=== PATIENT | male | born 2000 | race Two or more races ===

== ENCOUNTER 2019-06-16 16:42 | Emergency (ER) | payer SELFPAY ==
[~2019-06-16] VITALS: Ht 182.9 cm; Wt 101.6 kg
[~2019-06-16 16:42] MED LIST: COLACE100 MG ORAL; IBUPROFEN600 MG ORAL
[2019-06-16 17:09] VITALS: BP 113/71
--- NOTE | 2019-06-16 17:09 | NUR ---
ED Nurse Note: Pt. c/o left elbow pain radiating to his left shoulder, chest, and back of the neck for a month. The pain with movement and felt anxiety.
--- NOTE | 2019-06-16 17:24 | Diagnostic Imaging Report ---
EXAM: XR Chest, 1 View CLINICAL HISTORY: PAIN TECHNIQUE: Frontal view of the chest. COMPARISON: No relevant prior studies available. FINDINGS: Lungs: No acute cardiopulmonary disease definitively seen. Pleural space: Unremarkable. No pneumothorax. Heart: Mildly prominent right heart border could be incidental, although chamber enlargement could also produce this appearance. Consider nonemergent echocardiogram if felt to alter further management. Mediastinum: Unremarkable. Bones/joints: Unremarkable. Other findings: Otherwise unremarkable. IMPRESSION: 1. No acute cardiopulmonary disease definitively seen. 2. Mildly prominent right heart border could be incidental, although chamber enlargement could also produce this appearance. Consider nonemergent echocardiogram if felt to alter further management. 3. Otherwise unremarkable.
[2019-06-16] MEDS ORDERED: Ketorolac 30mg Inj IV ONE (17:30)
--- NOTE | 2019-06-16 17:41 | NUR ---
ED Nurse Note: EKG is done. All labs sent.
[2019-06-16 17:44] LABS: APPEARANCE,URINE CLEAR; BILIRUBIN, URINE NEGATIVE (NEGATIVE); COLOR,URINE PALE YELLOW; GLUCOSE, URINE (UA) NEGATIVE (NEGATIVE); KETONES,URINE NEGATIVE (NEGATIVE); LEUKOCYTE ESTERASE ,URINE NEGATIVE (NEGATIVE); NITRITE,URINE NEGATIVE (NEGATIVE); PH,URINE 6.5 (4.5-8.0); PROTEIN,URINE NEGATIVE (NEGATIVE); UROBILINOGEN,URINE NORMAL MG/DL (0.0-1.0)
[2019-06-16 17:52] LABS: ANION GAP 9 mmol/L (5-15); BLOOD UREA NITROGEN 10 mg/dL (7-18); CALCIUM 8.9 MG/DL (8.5-10.1); CARBON DIOXIDE 27 MMOL/L (21-32); CHLORIDE 106 MMOL/L (98-107); POTASSIUM 4.1 MMOL/L (3.5-5.1); SODIUM 142 MMOL/L (136-145)
[2019-06-16 17:57] LABS: ALANINE AMINOTRANSFERASE 55 U/L (12-78); ALBUMIN 4.1 G/DL (3.4-5.0); ALKALINE PHOSPHATASE 116 U/L (46-116); ASPARTATE AMINO TRANSFERASE 19 U/L (15-37); BILIRUBIN,TOTAL 0.3 MG/DL (0.2-1.0); CREATINE KINASE 144 U/L (26-308)
[2019-06-16 18:05] LABS: BASOPHILS % (AUTO) 1.3 % (0.0-2.0); EOSINOPHILS % (AUTO) 2.7 % (0.0-3.0); HEMATOCRIT 50.1 % (42.0-52.0); HEMOGLOBIN 16.5 G/DL (14.2-18.0); LYMPHOCYTES % (AUTO) 18.5 % (20.0-45.0); MEAN CORPUSCULAR VOLUME 89 FL (80-99); MONOCYTES % (AUTO) 7.7 % (1.0-10.0); NEUTROPHILS % (AUTO) 69.8 % (45.0-75.0); PLATELET COUNT 282 K/UL (150-450); RED BLOOD COUNT 5.59 M/UL (4.70-6.10); RED CELL DISTRIBUTION WIDTH 11.5 % (11.6-14.8); WHITE BLOOD COUNT 8.1 K/UL (4.8-10.8)
--- NOTE | 2019-06-16 18:11 | Emergency Room Report ---
History of Present Illness General Chief Complaint: Upper Extremity Injury Source: Patient Present Illness HPI 19-year-old male with no significant medical history here complaining of 1 month of intermittent chest pain and shortness of breath. Patient reports that he used to lift weights every day and do push-ups at the gym, drink energy drinks and take pre-workout however since the start of COVID-19 quarantine patient has not exhausted withdrawal has not taken any energy drinks or with usual routine pre-workout. Denies any fall or injury. Reports that the pain is worse with movement. Also complains of acid reflux, denies generalized abdominal pain, nausea vomiting, diarrhea. Denies cough and congestion, chest pressure, pleuritic chest pain, fever and chills. Denies any history of tobacco smoke, drug use, alcohol intake. Also reports that he gets occasional tingling sensation and pain in left elbow with radiation to left arm. Reports that he has history of anxiety. Denies any SI and HI at this time. Denies any cardiac history. Allergies: Coded Allergies: No Known Allergies (Unverified , 07/10/12) COVID-19 Screening Contact w/high risk pt: No Recent Travel to affected area: No Experienced COVID-19 symptoms?: No Patient History Past Medical History: see triage record Past Surgical History: none Pertinent Family History: none Immunizations: UTD Reviewed Nursing Documentation: PMH: Agreed; PSxH: Agreed Nursing Documentation-PMH Past Medical History: No Stated History Review of Systems All Other Systems: negative except mentioned in HPI Physical Exam Vital Signs Date Time Temp Pulse Resp B/P (MAP) Pulse Ox O2 Delivery O2 Flow Rate FiO2 06/16/19 16:48 98.1 100 18 113/71 (85) 99 Room Air Sp02 EP Interpretation: reviewed, normal General Appearance: no apparent distress, alert, GCS 15, non-toxic Head: normocephalic, atraumatic Eyes: bilateral eye normal inspection, bilateral eye PERRL ENT: hearing grossly normal, normal pharynx, no angioedema, normal voice Neck: full range of motion, supple/symm/no masses Respiratory: chest non-tender, lungs clear, normal breath sounds, speaking full sentences Cardiovascular #1: regular rate, rhythm, no edema Gastrointestinal: normal bowel sounds, non tender, soft, non-distended, no guarding, no rebound Genitourinary: no CVA tenderness Musculoskeletal: back normal, no calf tenderness Neurologic: alert, motor strength/tone normal, oriented x3, sensory intact, responsive, speech normal Psychiatric: judgement/insight normal, memory normal, anxious Skin: no rash Lymphatic: no adenopathy Medical Decision Making PA Attestation All diagnoses and treatment plans were reviewed and discussed with my supervising physician Dr. Tapia Diagnostic Impression: Primary Impression: Chest wall pain Additional Impressions: Anxiety Gastritis ER Course 19-year-old male with no significant medical history here complaining of 1 month of intermittent chest pain and shortness of breath. Patient reports that he used to lift weights every day and do push-ups at the gym, drink energy drinks and take pre-workout however since the start of - quarantine patient has not exhausted withdrawal has not taken any energy drinks or with usual routine pre-workout. Denies any fall or injury. Reports that the pain is worse with movement. Also complains of acid reflux, denies generalized abdominal pain, nausea vomiting, diarrhea. Denies cough and congestion, chest pressure, pleuritic chest pain, fever and chills. Denies any history of tobacco smoke, drug use, alcohol intake. Also reports that he gets occasional tingling sensation and pain in left elbow with radiation to left arm. Reports that he has history of anxiety. Denies any SI and HI at this time. Denies any cardiac history. Ddx considered but are not limited to: OK, Angina, COPD, GERD, Vital signs: are WNL, pt. is afebrile H&PE are most consistent with chest wall pain, anxiety, gastritis ORDERS: EKG, Chest XR, cardiac labs(troponin, CBC, CMP), omeprazole, Robaxin, Tylenol ED INTERVENTIONS: NS bolus, Pepcid, Toradol as patient reported that he felt much better after administration of these medications DISCHARGE: At this time pt. is stable for d/c to home. Will provide printed patient care instructions, and any necessary prescriptions. Care plan and follow up instructions have been discussed with the patient prior to discharge. Patient to follow primary doctor, referral to special weapons unit officer may be needed, avoid strenuous physical activity, however resume his routine workout. EKG Diagnostic Results Rate: normal Rhythm: NSR ST Segments: no acute changes Other Impression No acute ST changes Chest X-Ray Diagnostic Results Chest X-Ray Diagnostic Results : Chest X-Ray Ordered: Yes # of Views/Limited/Complete: 1 View Indication: Chest Pain EP Interpretation: Yes PA Xray: Interpretation reviewed, by supervising MD, and agrees with findings. Interpretation: no consolidation, no effusion, no pneumothorax Impression: No acute disease Electronically Signed by: Elier SANDOVAL Scribe Text IMPRESSION: 1. No acute cardiopulmonary disease definitively seen. 2. Mildly prominent right heart border could be incidental, although chamber enlargement could also produce this appearance. Consider nonemergent echocardiogram if felt to alter further management. 3. Otherwise unremarkable. Other X-Ray Diagnostic Results Other X-Ray Diagnostic Results : X-Ray ordered: Left elbow # of Views/Limited Vs Complete: 3 View Indication: Pain EP Interpretation: Yes PA Xray: Interpretation reviewed, by supervising MD, and agrees with findings. Interpretation: no dislocation, no soft tissue swelling, no fractures Impression: No acute disease Electronically Signed by: Eiler Feliz PA-C Last Vital Signs Date Time Temp Pulse Resp B/P (MAP) Pulse Ox O2 Delivery O2 Flow Rate FiO2 06/16/19 16:48 98.1 100 18 113/71 (85) 99 Room Air Disposition: HOME, SELF-CARE Condition: Stable Scripts Omeprazole (OMEPRAZOLE) 20 Mg Tablet.dr 20 MG ORAL DAILY, #30 TAB Prov: Elier Mares 06/16/19 Methocarbamol* (ROBAXIN-500*) 500 Mg Tablet 500 MG ORAL TID PRN for For Pain, #15 TAB 0 Refills Prov: Elier Mares 06/16/19 Acetaminophen* (TYLENOL EXTRA STRENGTH*) 500 Mg Tablet 500 MG ORAL Q8H PRN for Prn Headache/Temp > 101, #30 TAB 0 Refills Prov: Elier Mares 06/16/19 Referrals: NOT APPLICABLE THIS PATIENT,RE (PCP) Patient Instructions: Chest Wall Pain, [id number] Additional Instructions: Take medication as directed, follow with primary doctor, referral to special weapons unit officer may be needed, if worsening symptoms return to the emergency room Elier Mares June 16, 2019 18:11
[2019-06-16] MEDS ORDERED: OMEPRAZOLE20 M3 ORAL (18:12)
[2019-06-16] MEDS ORDERED: ROBAXIN-500MG ORAL (18:12)
[2019-06-16] MEDS ORDERED: TYLENOL EXTRA500 MG ORAL (18:12)
--- NOTE | 2019-06-16 18:35 | NUR ---
ER DISCHARGE NOTE: Patient is cleared to be discharged per ERMD, pt is aox4, on room air, with stable vital signs. pt was given dc and prescription instructions, pt was able to verbalize understanding, pt id band and iv site removed without complications. pt is able to ambulate with steady gait. pt took all belongings.
--- NOTE | 2019-06-16 18:42 | Diagnostic Imaging Report ---
EXAM: XR Left Elbow Complete, 3 or More Views CLINICAL HISTORY: PAIN TECHNIQUE: Frontal, lateral and oblique views of the left elbow. COMPARISON: No relevant prior studies available. FINDINGS: Bones/joints: Unremarkable. No acute fracture. No dislocation. Soft tissues: Unremarkable. IMPRESSION: Normal left elbow x-rays.
== END 2019-06-16 18:35 | disposition home or self-care (01) ==
LOC: EMR 17:46
DX: R07.9 Chest pain, unspecified (principal); F41.9 Anxiety disorder, unspecified; K29.70 Gastritis, unspecified, without bleeding
CPT/HCPCS: 36415; 71045; 73080; 80053; 80307; 81003; 82550; 84484; 85025; 93005; 96361; 96374; 96375; 99284; J1885; J7030; S0028

== ENCOUNTER 2019-10-03 04:31 | Emergency (ER) | payer MEDICAID ==
[~2019-10-03] VITALS: Ht 182.9 cm; Wt 99.8 kg
[~2019-10-03 04:31] MED LIST changes: +OMEPRAZOLE20 M3 ORAL; +ROBAXIN-500MG ORAL; +TYLENOL EXTRA500 MG ORAL
--- NOTE | 2019-10-03 04:40 | NUR ---
ED Nurse Note: patient ambulated to ed c/o left chest pain for months with unknown etiology. changed into gown; attached to monitor. ekg done at bedside; nsr. all safety measures met.
[2019-10-03 04:45] VITALS: BP 115/72
--- NOTE | 2019-10-03 04:45 | NUR ---
ED Nurse Note: iv access established. blood and urine collected; sent down to lab.
--- NOTE | 2019-10-03 05:00 | NUR ---
ED Nurse Note: patient states he would like to go AMA. ERMD at bedside. patient still refused to continue care.
--- NOTE | 2019-10-03 05:15 | NUR ---
AMA: SEE AMA FORM. patient refused to continue care. patient left ama pt is aox4, on room air, with stable vital signs. pt id band and iv site removed without complications. pt is able to ambulate with steady gait. pt took all belongings.
[2019-10-03 05:30] LABS: BASOPHILS % (AUTO) 1.6 % (0.0-2.0); EOSINOPHILS % (AUTO) 1.9 % (0.0-3.0); HEMOGLOBIN 16.1 G/DL (14.2-18.0); LYMPHOCYTES % (AUTO) 23.4 % (20.0-45.0); MEAN CORPUSCULAR VOLUME 89 FL (80-99); MONOCYTES % (AUTO) 9.1 % (1.0-10.0); PLATELET COUNT 286 K/UL (150-450); RED BLOOD COUNT 5.31 M/UL (4.70-6.10); RED CELL DISTRIBUTION WIDTH 11.1 % (11.6-14.8); WHITE BLOOD COUNT 6.8 K/UL (4.8-10.8)
[2019-10-03 05:32] LABS: ANION GAP 11 mmol/L (5-15); BLOOD UREA NITROGEN 14 mg/dL (7-18); CALCIUM 8.9 MG/DL (8.5-10.1); CARBON DIOXIDE 27 MMOL/L (21-32); CHLORIDE 103 MMOL/L (98-107); CREATININE 1.5 MG/DL (0.55-1.30); POTASSIUM 3.8 MMOL/L (3.5-5.1); SODIUM 140 MMOL/L (136-145)
[2019-10-03 05:37] LABS: ALANINE AMINOTRANSFERASE 36 U/L (12-78); ALBUMIN 4.1 G/DL (3.4-5.0); ALKALINE PHOSPHATASE 105 U/L (46-116); ASPARTATE AMINO TRANSFERASE 15 U/L (15-37); BILIRUBIN,TOTAL 0.3 MG/DL (0.2-1.0)
--- NOTE | 2019-10-06 15:28 | Emergency Room Report ---
History of Present Illness General Chief Complaint: Chest Pain Source: Patient Present Illness HPI 19-year-old male presents ED complaining of chest pain. States he has been having pain to the left side of his chest on and off for months now. Left-sided , dull, 5 out of 10, nonradiating. Notes pain with positional changes. Denies alcohol or drug use. No other aggravating relieving factors. 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 Patient History Past Medical History: HTN Past Surgical History: none Pertinent Family History: none Social History: Denies: smoking, alcohol use, drug use Immunizations: UTD Reviewed Nursing Documentation: PMH: Agreed; PSxH: Agreed Nursing Documentation-PMH Hx Hypertension: Yes Review of Systems All Other Systems: negative except mentioned in HPI Physical Exam Vital Signs Date Time Temp Pulse Resp B/P (MAP) Pulse Ox O2 Delivery O2 Flow Rate FiO2 10/03/19 04:35 97.9 96 16 115/72 (86) 98 Room Air Sp02 EP Interpretation: reviewed, normal General Appearance: no apparent distress, alert, GCS 15, non-toxic Head: normocephalic, atraumatic Eyes: bilateral eye normal inspection, bilateral eye PERRL ENT: hearing grossly normal, normal pharynx, no angioedema, normal voice Neck: full range of motion, supple/symm/no masses Respiratory: lungs clear, normal breath sounds, speaking full sentences, other - reproducible L sided chest wall pain Cardiovascular #1: regular rate, rhythm, no edema Cardiovascular #2: 2+ carotid (R), 2+ carotid (L), 2+ radial (R), 2+ radial (L) , 2+ dorsalis pedis (R), 2+ dorsalis pedis (L) Gastrointestinal: normal bowel sounds, non tender, soft, non-distended, no guarding, no rebound Rectal: deferred Genitourinary: normal inspection, no CVA tenderness Musculoskeletal: back normal, normal range of motion, gait/station normal, non- tender Neurologic: alert, motor strength/tone normal, oriented x3, sensory intact, responsive, speech normal Psychiatric: judgement/insight normal, memory normal, mood/affect normal, no suicidal/homicidal ideation Reflexes: 3+ bicep (R), 3+ bicep (L), 3+ tricep (R), 3+ tricep (L), 3+ knee (R) , 3+ knee (L) Skin: no rash Lymphatic: no adenopathy Medical Decision Making Diagnostic Impression: Primary Impression: Chest pain Qualified Codes: R07.9 - Chest pain, unspecified ER Course Hospital Course 19-year-old M presents ED complaining of chest pain Differential diagnoses include: Rib fracture, OH/unstable angina, contusion, muscle strain Clinical course Patient placed on stretcher. After initial history and physical I ordered labs , EKG, chest x-ray. EKG - NSR no acute ischemic changes interpreted by me Patient states that he wants to leave. States his sister is here and she wants to leave AGAINST MEDICAL ADVICE. I explained that his work-up is not completed yet. Patient states he wishes to go home. Understands the risks of leaving. Patient has competency to make his own decisions. Signed AMA form. I. I feel this is a highly complex case requiring extensive working including EKG/Rhythm strip, Xray/CT/US, Blood/urine lab work, repeat exams while in ED, and administration of strong opiates/narcotics for pain control, admission to hospital or close patient follow up. Diagnosis - chest pain patient left AMA EKG Diagnostic Results Rate: normal Rhythm: NSR ST Segments: no acute changes ASA given to the pt in ED: No Rhythm Strip Diag. Results EP Interpretation: yes Rhythm: NSR, no PVC's, no ectopy Last Vital Signs Date Time Temp Pulse Resp B/P (MAP) Pulse Ox O2 Delivery O2 Flow Rate FiO2 10/03/19 04:45 96 16 Room Air 10/03/19 04:45 97.9 115/72 98 Status: improved Disposition: AGAINST MEDICAL ADVICE Condition: Unknown Referrals: NOT CHOSEN IPA/,REFERRING (PCP) Leonel Hopper MD Oct 06, 2019 15:28
== END 2019-10-03 05:15 | disposition left against medical advice (07) ==
LOC: EMR 04:55
DX: R07.9 Chest pain, unspecified (principal); I10 Essential (primary) hypertension
CPT/HCPCS: 36415; 80053; 84484; 85025; 93005; Z7502; 99283